=== PATIENT | male | born 1935 | race Caucasian/White ===

== ENCOUNTER 2016-08-15 12:15 | Emergency (ER) | payer MEDICARE, MEDICAID ==
[~2016-08-15] VITALS: Ht 175.3 cm; Wt 93.2 kg
[~2016-08-15 12:15] MED LIST: ALBU8.5H2 INHALATION; AMLO5TAB2 PO; AMOX1TAB11 PO; ASPI-973 PO; BUDE0.5A2 INHALATION; CARV3.122 PO; CHOL200025 PO; CYAN50006 SL; EUC50OIN2 EXT; GLIM1TAB PO; IPRA3AMP IH; LEVO5TAB13 PO; OMEP20CA11 PO; PRAV40TA PO; ROPI1TAB3 PO; SYMINH INHALATION; [UNRECOGNIZED DRUG - CODE] PO
[2016-08-15 12:28] VITALS: BP 130/61; PULSE 91; RESP 22; O2SAT 93
--- NOTE | 2016-08-15 12:37 | ED.REPORT ---
HPI-URI / Cough / Cold Date of Service Aug 15, 2016 ED Provider: History of Present Illness: sick for 2 weeks. Seen at [facility] yesterday for iron injections. Dr. Platt is primary care. swollen glands in throat and in left axaillae. coughing at night. has copd. stopped smoking 20 years ago. discharge form both eyes in the am, stuck shut. seems worse today. has trouble breathing at baseline. concerned about lymph nodes Nursing Notes Stated Complaint: LYMPH NODE SWOLLEN,RUNNY NOSE,GOOPY EYES Chief Complaint: General Complaint Nursing Notes Reviewed: Yes Allergies: Coded Allergies: Sulfa (Sulfonamide Antibiotics) (Verified Allergy, Unknown, 03/28/15) Scheduled Amlodipine (Amlodipine) 5 Mg Tablet 10 MG PO DAILY Amoxicillin/Clav K 500-125 mg (Augmentin 500) 1 Tab Tab 1 TABLET PO TID Aspirin (Aspirin) 81 Mg Tablet 81 MG PO DAILY Budesonide Neb Soln (Budesonide Neb Soln) 0.5 Mg/2 Ml Neb 0.5 MG INHALATION BID Budesonide/Formoterol 160-4.5 mcg Inh (Symbicort 160-4.5 mcg Inh) 120 Puff Inhaler 2 PUFF INHALATION BID Carvedilol (Carvedilol) 3.125 Mg Tablet 6.25 MG PO BID Cholecalciferol (Vitamin D3) (Vitamin D3) 2,000 Unit Tablet 2,000 UNIT PO DAILY Cyanocobalamin (Vitamin B-12) (B-12) 5,000 Mcg/1 Ml Drops 5,000 MCG SL DAILY Diphenhydramine HCl (Z-Sleep) 25 Mg Capsule 50 MG PO HS Euc Oil/Aloe/Lav&Rosem Oils/Pt (Vicks Babyrub Soothing Oint) 50 Gm Oint...g. 1 APPLIC EXT HS Glimepiride (Glimepiride) 1 Mg Tablet 1 MG PO DAILYAC Ipratropium/Albuterol Sulfate (Iprat-Albut 0.5-3(2.5) mg/3 mL Inhalant Soln) 3 Ml Ampul.neb 3 ML IH Q2H Levocetirizine Dihydrochloride (Levocetirizine Dihydrochloride) 5 Mg Tablet 5 MG PO HS Omeprazole (Omeprazole) 20 Mg Capsule.dr 20 MG PO DAILY Pravastatin (Pravastatin) 40 Mg Tablet 40 MG PO DAILY Ropinirole (Ropinirole) 1 Mg Tablet 1-2 MG PO HS Scheduled PRN Albuterol HFA (Proair HFA) 8.5 Gm Hfa.aer.ad 2 PUFFS INHALATION Q4H PRN PRN For Shortness of Breath General Time Seen by MD: 12:37 Chief Complaint Cough, non-productive Hx Obtained From: Patient Onset Occurred: More than a week ago... (2 weeks) Symptom Duration: Since onset Past Medical History Past Medical History restless leg syndrome asthma Reports: COPD, Diabetes mellitus, GERD, Hypertension Reports: Renal failure Past Surgical History colonoscopy Smoking History Former Smoker Social History Alcohol Use: "Social" Other Social History: Local resident Occupation live with roommate in 1 story apartment on first floor 08/13/2016 Ambulatory Status Independent Review of Systems Basic Review of Systems Cardiovascular: No chest pain, No dyspnea on exertion, No orthopnea, No parox noct dyspnea, No palpitations Hematologic: No bleeding, No bruising Psychiatric: Normal thought content Physical Exam Initial Vital Signs Vital Signs (First) Date Time Temp Pulse Resp B/P Pulse Ox O2 Delivery O2 Flow Rate FiO2 08/15/16 12:28 36.4 91 22 130/61 93 Room Air 4 Initial VS: Reviewed, Vital signs normal Head / Eyes: Atraumatic, Normocephalic, PERRL Neck: Supple, Non-tender, Full range of motion Cardiovascular: Regular rate & rhythm, Heart sounds normal, Intact distal pulses Abdomen / GI: Soft, Non-tender, No guarding, No rebound, No distention Back: No CVA tenderness Lymphatic: No lymphadenopathy Extremities: Vascular intact, Neuro intact, No swelling, No tenderness Skin: Warm, Dry, No cyanosis Neurologic: Alert, Oriented, Nonfocal Psychiatric: Mood/affect normal, Behavior normal, Normal thought content General/Constitutional: Awake, Alert, No acute distress, Well appearing, Well developed, Well hydrated, Well nourished, Cooperative, Not toxic appearing ENT: Atraumatic, Airway patent, Mucous membranes moist, Pharynx NL, No peritonsillar abscess Respiratory / Chest: Atraumatic Diminished Breath Sounds: Positive: Decreased L, Decreased R Head / Eyes: Atraumatic, Normocephalic, PERRL, EOMI Neck: Atraumatic, Supple Cardiovascular: Heart rate NL, Regular rhythm, Heart sounds NL, No gallop Interpretation & Diagnostics Interpretation & Diagnostics: PROCEDURE: NECK/CHEST W/O CONTRAST (PNL) INDICATIONS: sob, ? enlarged lymph nodes TECHNIQUE: Non-contrast 3 mm thick axial sections acquired from the skull base to the thoracic inlet, with additional oblique sections through the pharynx and 3 mm thick coronal reformats. 5 mm thick axial sections acquired from the lung apices to the posterior costophrenic angles, with 7 mm thick coronal and sagittal MIP reformats. For radiation dose reduction, the following was used: automated exposure control, adjustment of mA and/or kV according to patient size. COMPARISON: [facility], CT, CHEST W/O CONTRAST, 09/06/2014, 14:06. FINDINGS: Image quality: Good NECK: Lymph nodes: No enlarged lymph nodes seen throughout the neck. Vessels: Visualized vessels are normal in overall sizes. Neck spaces: The oropharynx, nasopharynx, and pharynx demonstrate no mucosal lesions. The vocal cords, false vocal cords, pyriform recesses, epiglottis, vallecula, and tongue base appear normal. Extramucosal spaces appear unremarkable. Glands: Parotid and submandibular salivary glands appear normal in size. Thyroid gland suggests at least 2 nodules close to 1 cm in size in the right lobe.. Miscellaneous: Visualized inferior brain and orbits appear normal. Superficial soft tissues appear normal. Visualized sinuses and mastoids are clear. CHEST: Lungs and pleura: No acute pulmonary opacities. There is scarring at the right lung apex that is unchanged since previous CT of the thorax in August of 2014. Lungs are otherwise considered clear of any nodular appearing densities. No pleural effusions or pneumothorax. Central and peripheral airways are patent and normal in caliber. Mediastinum: Heart size is normal. No pericardial effusion. No mediastinal adenopathy by size criteria. Thoracic aorta and central pulmonary arteries are normal in size. Atherosclerotic calcifications are present in the aorta and coronary arteries. Esophagus is normal in caliber. No hiatal hernia. Chest wall: No axillary or supraclavicular adenopathy. Bones: No suspicious bony lesions. Abdomen: Visualized upper abdominal solid organs and bowel loops appear normal in the absence of contrast. There is a 12 mm left adrenal nodule. IMPRESSION: No evidence of adenopathy is seen. There is some scarring in the right upper lung that is unchanged since the chest CT August 2014. There are 2 nodules in the right lobe of the thyroid approaching 1 cm in size. It is difficult to tell if those were present on the previous CT. Lab Results Interpretation Result Diagram: 08/15/16 1330 08/15/16 1330 Test 08/15/16 13:30 White Blood Count 6.5th/mm3 (3.8-10.1) Red Blood Count 3.90mil/mm3 (4.40-5.80) Hemoglobin 10.7g/dL (13.8-17.2) Hematocrit 35.2% (41.0-50.0) Mean Corpuscular Volume 90.3fL (81-100) Mean Corpuscular Hemoglobin 27.4pg (27.0-35.0) Mean Corpuscular Hemoglobin Concent 30.4% (32.0-37.0) Red Cell Distribution Width 15.2% (12.3-15.4) Platelet Count 190bil/L (150-400) Neutrophils (%) (Auto) 66.6% (40-74) Lymphocytes (%) (Auto) 21.4% (14-46) Monocytes (%) (Auto) 8.6% (4-12) Eosinophils (%) (Auto) 2.8% (0-5) Basophils (%) (Auto) 0.3% (0-3) Sodium Level 139mEq/L (134-144) Potassium Level 4.2mEq/L (3.5-5.2) Chloride Level 97mEq/L (97-108) Carbon Dioxide Level 29mmol/L (18-29) Blood Urea Nitrogen 19mg/dL (8-27) Creatinine 1.71mg/dL (0.76-1.27) Estimat Glomerular Filtration Rate 41mL/min (>59) Glucose Level 130mg/dL (60-99) Lactic Acid Level 1.1mmol/L (0.4-2.0) Calcium Level 9.3mg/dL (8.5-10.1) Total Bilirubin 0.2mg/dL (0.0-1.2) Aspartate Amino Transf (AST/SGOT) 10U/L (0-50) Alanine Aminotransferase (ALT/SGPT) 5U/L (0-44) Alkaline Phosphatase 83U/L (25-160) Troponin T 0.013ug/L (0.0-0.011) Pro-B-Type Natriuretic Peptide 166.9pg/mL (0-486) Total Protein 7.1g/dL (6.4-8.4) Albumin 3.6g/dL (3.4-5.0) Re-Eval/Medical Decision Med Decision/Clinical Course Med Decision/Clinical Course: 81 year old male presents with concern for enalrged lymph nodes in his neck and left axaillary area, ongoing for 2 weeks. Exam does not identify any palpable masses. CT does show 2 thyroid nodlues on the right lobe. Labs are unremarkable. No sign lymphonia. Discharge & Departure Impression: Primary Impression: Thyroid nodule Disposition: Home Patient Instructions: Thyroid Nodules (ED) Additional Instructions: The CT of the chest and the neck show 2 possible nodules in the right lobe of the thyroid. There is no sign of adenopathy in the axillary or neck. Please follow with Dr. Platt for follow up on these. Use erythromycin ointment to each eye 3 times a day for 5 days to help with the crusting of the eyes. Can use prednisone 40 mg daily for 3 days the 30 mg daily for 3 days then 20 mg daily for 3 days then 10 mg daily for 3 days to help with your breathing. Referrals: Chris Starks MD (PCP) EDSupervising Provider for APC: Pepe Washington MD copies to: Chris Starks MD, Sue ARNP Aug 15, 2016 12:37
[2016-08-15] MEDS ORDERED: Albuterol-Ipratropium 3 mL Inhalation Solution NEB ONE (12:50)
[2016-08-15 13:33] VITALS: PULSE 82; RESP 20; O2SAT 98
[2016-08-15 13:37] LABS: BASOPHILS % (AUTO) 0.3 % (0-3); EOSINOPHILS % (AUTO) 2.8 % (0-5); MONOCYTES % (AUTO) 8.6 % (4-12); Mean Corpuscular Hemoglobin 27.4 pg (27.0-35.0); Mean Corpuscular Volume 90.3 fL (81-100); NEUTROPHILS % (AUTO) 66.6 % (40-74); Platelet Count 190 bil/L (150-400)
[2016-08-15 14:27] LABS: TROPONIN T 0.013 ug/L (0.0-0.011)
[2016-08-15 16:02] VITALS: BP 137/46; PULSE 73; RESP 20; O2SAT 95
--- NOTE | 2016-08-15 16:49 | DRSVH ---
PROCEDURE: NECK/CHEST W/O CONTRAST (PNL) INDICATIONS: sob, ? enlarged lymph nodes TECHNIQUE: Non-contrast 3 mm thick axial sections acquired from the skull base to the thoracic inlet, with addit ional oblique sections through the pharynx and 3 mm thick coronal reformats. 5 mm thick axial sectio ns acquired from the lung apices to the posterior costophrenic angles, with 7 mm thick coronal and sa gittal MIP reformats. For radiation dose reduction, the following was used: automated exposure cont rol, adjustment of mA and/or kV according to patient size. COMPARISON: [facility], CT, CHEST W/O CONTRAST, 09/06/2014, 14:06. FINDINGS: Image quality: Good NECK: Lymph nodes: No enlarged lymph nodes seen throughout the neck. Vessels: Visualized vessels are normal in overall sizes. Neck spaces: The oropharynx, nasopharynx, and pharynx demonstrate no mucosal lesions. The vocal cor ds, false vocal cords, pyriform recesses, epiglottis, vallecula, and tongue base appear normal. Extr amucosal spaces appear unremarkable. Glands: Parotid and submandibular salivary glands appear normal in size. Thyroid gland suggests at least 2 nodules close to 1 cm in size in the right lobe.. Miscellaneous: Visualized inferior brain and orbits appear normal. Superficial soft tissues appear normal. Visualized sinuses and mastoids are clear. CHEST: Lungs and pleura: No acute pulmonary opacities. There is scarring at the right lung apex that is unc hanged since previous CT of the thorax in August of 2014. Lungs are otherwise considered clear of any nodular appearing densities. No pleural effusions or pneumothorax. Central and peripheral airways ar e patent and normal in caliber. Mediastinum: Heart size is normal. No pericardial effusion. No mediastinal adenopathy by size crit eria. Thoracic aorta and central pulmonary arteries are normal in size. Atherosclerotic calcificatio ns are present in the aorta and coronary arteries. Esophagus is normal in caliber. No hiatal hernia. Chest wall: No axillary or supraclavicular adenopathy. Bones: No suspicious bony lesions. Abdomen: Visualized upper abdominal solid organs and bowel loops appear normal in the absence of con trast. There is a 12 mm left adrenal nodule. IMPRESSION: No evidence of adenopathy is seen. There is some scarring in the right upper lung that is unchanged since the chest CT August 2014. There are 2 nodules in the right lobe of the thyroid approaching 1 cm in size. It is difficult to tel l if those were present on the previous CT. Cause of shortness of breath is not identified. Dictated by: Dyllan Kingsley M.D. on 08/15/2016 at 16:40 Approved by: Dyllan Kingsley M.D. on 08/15/2016 at 16:47
[2016-08-15 17:56] VITALS: BP 142/47; PULSE 84; RESP 20; O2SAT 93
== END 2016-08-15 17:59 | disposition home or self-care (01) ==
LOC: SED 12:15
DX: E04.1 Nontoxic single thyroid nodule (principal); R05 Cough; H57.8 Other specified disorders of eye and adnexa; R06.00 Dyspnea, unspecified; J44.9 Chronic obstructive pulmonary disease, unspecified; I10 Essential (primary) hypertension; K21.9 Gastro-esophageal reflux disease without esophagitis; E11.9 Type 2 diabetes mellitus without complications; Z79.82 Long term (current) use of aspirin; Z87.891 Personal history of nicotine dependence; Z88.2 Allergy status to sulfonamides
CPT/HCPCS: 70490; 71250; 80053; 83605; 83880; 84484; 85025; 93005; 94664; 99285; J7620; Q9967